=== PATIENT | female | born 1985 | race African-American/Black ===

== ENCOUNTER 2019-05-01 21:26 | Emergency (ER) | payer OTHER ==
[2019-05-01 21:32] VITALS: BP 116/79; PULSE 80; TEMP 98.4; BMI 29.9
--- NOTE | 2019-05-01 21:52 | PDOC ---
Documentation entered by Lillie Fernández SCRIBE, acting as scribe for Dinorah Mireles MD. Dinorah Mireles MD: This documentation has been prepared by the Jolene boo Brenda, SCRIBE, under my direction and personally reviewed by me in its entirety. I confirm that the documentation accurately reflects all work , treatment, procedures, and medical decision making performed by me. History of Present Illness - General Chief Complaint: Foreign Body (FB) Stated Complaint: FISHBONE STUCK IN THROAT Time Seen by Provider: 05/01/19 21:34 History Source: Patient Exam Limitations: No Limitations - History of Present Illness Initial Comments: 05/01/19 21:52 The patient is a 34 year old female, with a significant PMH of arrhythmia who presents to the emergency department with concern for digesting a foreign body. As per patient, she was eating fish for dinner about 1 hour ago, at which time she felt as if she swallowed a fish bone. Patient notes having a similar episode of this before, and feeling the same symptoms. Patient reports episodes of gagging and coughing uon swallowing, and coughing up slight blood. Patient notes being able to breathe and swallow. The patient denies chest pain, shortness of breath, headache and dizziness. Denies fever, chills, nausea, vomiting, diarrhea and constipation. Denies dysuria, frequency, urgency and hematuria. PAST MEDICAL HISTORY: Arrhythmia PAST SURGICAL HISTORY: umbilical hernia repair (2017) and FAMILY HISTORY: no pertinent history MEDICATIONS: reviewed ALLERGIES: As per nursing notes General: No fevers or chills, no weakness, no weight loss HEENT: (+)Possible foreign body in throat. (+)Cough. No change in vision. No sore throat,. No ear pain CardioVascular: No chest pain or shortness of breath Respiratory:No cough, or wheezing. Gastrointestinal: no nausea, vomiting, diarrhea or constipation, No rectal bleeding Genitourinary: No dysuria, hematuria, or frequency Musculoskeletal: No joint or muscle pain or swelling Neurologic: No headache, vertigo, dizziness or loss of consciousness Psychiatric: nor depression Skin: No rashes or easy bruising Endocrine: no increased thirst or abnormal weight change Allergic: no skin or latex allergy All other systems reviewed and normal GENERAL: The patient is awake, alert, and fully oriented, in no acute distress. HEAD: Normal with no signs of trauma. EYES: Pupils equal, round and reactive to light, extraocular movements intact, sclera anicteric, conjunctiva clear. EXTREMITIES: Normal range of motion, no edema. NEUROLOGICAL: Normal speech, normal gait. PSYCH: Normal mood, normal affect. SKIN: Warm, Dry, normal turgor, no rashes or lesions noted. Assessment and plan: This is a 34-year-old female comes in complaining of a foreign body/fishbone stuck in throat. The patient that we have nobody is a smoker so recommended that she either follow up with Dr. Gudino in the morning or over to the [facility] where somebody there will be able to scope her. 05/01/19 21:58 Past History - Past Medical History Allergies/Adverse Reactions: Allergies Allergy/AdvReac Type Severity Reaction Status Date / Time No Known Allergies Allergy Verified 05/01/19 21:28 Home Medications: Ambulatory Orders NK [No Known Home Medication] 05/01/19 COPD: No Other medical history: DENIES - Suicide/Smoking/Psychosocial Hx Smoking History: Never smoked Have you smoked in the past 12 months: No Information on smoking cessation initiated: No Hx Alcohol Use: No Drug/Substance Use Hx: No *Physical Exam - Vital Signs Last Vital Signs Temp Pulse Resp BP Pulse Ox 98.4 F 80 15 116/79 100 05/01/19 21:29 05/01/19 21:29 05/01/19 21:29 05/01/19 21:29 05/01/19 21:29 *DC/Admit/Observation/Transfer Diagnosis at time of Disposition: Foreign body sensation in throat - Discharge Dispostion Disposition: HOME Condition at time of disposition: Stable Decision to Admit order: No - Referrals Referrals: Juarez Lang MD [Staff Physician] - - Patient Instructions Additional Instructions: We have nobody here they can remove a foreign body/fishbone for you. You have to options one would be to follow-up with an ENT tomorrow. If you decide to follow-up with an ENT tomorrow call Dr. Bueno on for an appointment. Otherwise go over to the [facility] to the emergency department in [facility] and they will have somebody there they can scope you and get the bone out tonight. Return to the emergency department immediately with ANY new, persistent or worsening symptoms. Continue any medications as previously prescribed by your physician. You should follow up with your primary doctor as soon as possible regarding today's emergency department visit. . Please make sure your doctor reviews the results of your emergency evaluation. Thank you for coming to the Emergency Department today for your care. It was a pleasure to see you today. Please note that your evaluation is INCOMPLETE until you follow-up with your doctor. - Post Discharge Activity
== END 2019-05-01 22:01 | disposition home or self-care (01) ==
LOC: FER 21:26
DX: R09.89 Other specified symptoms and signs involving the circulatory and respiratory systems (principal); I49.9 Cardiac arrhythmia, unspecified
CPT/HCPCS: 99281-25

== ENCOUNTER 2022-01-30 20:20 | Emergency (ER) | payer OTHER ==
[2022-01-30 20:33] VITALS: BP 117/81; PULSE 85; TEMP 98.7; BMI 31.4
== END 2022-01-31 00:20 | disposition home or self-care (01) ==
LOC: JER 20:20
DX: R05.1 Acute cough (principal)
CPT/HCPCS: 71046-TC-FY; 99283-25

== ENCOUNTER 2023-07-16 19:11 | Emergency (ER) | payer OTHER ==
[2023-07-16 19:56] VITALS: TEMP 96.4; BMI 31.6
[2023-07-16 21:20] LABS: BASO % 0.3 % (0-2.0); EOS % 0.4 % (0-4.5); HEMATOCRIT 38.6 % (32.4-45.2); HEMOGLOBIN 12.6 GM/dL (10.7-15.3); LYMPH % 12.9 % (8-40); MCH 26.6 pg (25.7-33.7); MCHC 32.7 g/dl (32.0-36.0); MEAN CELL VOLUME 81.3 fl (80-96); MEAN PLT VOLUME 7.7 fl (7.5-11.1); MONO % 5.4 % (3.8-10.2); PLATELET COUNT 228 10^3/uL (134-434); RBC 4.75 M/mm3 (3.60-5.2); RDW 13.7 % (11.6-15.6); WHITE BLOOD COUNT 8.8 K/mm3 (4.0-10.0)
[2023-07-16 21:23] LABS: INR 1.03 (0.83-1.09)
[2023-07-16 21:36] LABS: CHLORIDE 108 mmol/L (98-107); POTASSIUM 3.8 mmol/L (3.5-5.1); SODIUM 139 mmol/L (136-145)
[2023-07-16 21:39] LABS: ALBUMIN 3.6 g/dl (3.4-5.0); ANION GAP 6 MMOL/L (8-16); BLOOD UREA NITROGEN 16.7 mg/dL (7-18); CO2 24 mmol/L (21-32); GLUCOSE,RANDOM 115 mg/dL (74-106); LIPASE 114 U/L (73-393)
[2023-07-16 21:41] LABS: CREATININE 0.9 mg/dL (0.55-1.3); SGOT/AST 14 U/L (15-37)
[2023-07-16 21:42] LABS: SGPT/ALT 17 U/L (13-61)
[2023-07-16 21:43] LABS: BILIRUBIN,TOTAL 0.3 mg/dL (0.2-1); TOT PROT 7.2 g/dl (6.4-8.2)
[2023-07-16 21:44] LABS: ALK PHOS 48 U/L (45-117)
[2023-07-16 22:14] VITALS: BP 118/80; PULSE 89; RESP 16
== END 2023-07-17 01:06 | disposition home or self-care (01) ==
LOC: JER 19:11
DX: R07.89 Other chest pain (principal); R42 Dizziness and giddiness; R07.0 Pain in throat; Z20.822 Contact with and (suspected) exposure to COVID-19
CPT/HCPCS: 0241U-QW; 36415; 71046-TC-FY; 80053; 83690; 84484; 84702; 85025; 85610; 93005; 93010; 99285-25

== ENCOUNTER 2023-10-29 21:22 | Emergency (ER) | payer OTHER ==
[2023-10-29 21:34] VITALS: BP 122/52; PULSE 77; RESP 18; TEMP 98.3; BMI 31.2
[2023-10-29 23:42] LABS: BASO % 0.4 % (0-2.0); EOS % 0.3 % (0-4.5); HEMATOCRIT 37.6 % (32.4-45.2); HEMOGLOBIN 12.4 GM/dL (10.7-15.3); MCH 26.8 pg (25.7-33.7); MEAN CELL VOLUME 81.1 fl (80-96); MEAN PLT VOLUME 7.9 fl (7.5-11.1); MONO % 5.6 % (3.8-10.2); NEUT % 78.7 % (42.8-82.8); PLATELET COUNT 224 10^3/uL (134-434); RBC 4.64 M/mm3 (3.60-5.2); RDW 14.3 % (11.6-15.6); WHITE BLOOD COUNT 8.6 K/mm3 (4.0-10.0)
[2023-10-30 01:42] LABS: POTASSIUM 4.3 mmol/L (3.5-5.1)
[2023-10-30 01:44] LABS: CALCIUM 8.9 mg/dL (8.5-10.1)
[2023-10-30 01:45] LABS: ALBUMIN 3.4 g/dl (3.4-5.0); BLOOD UREA NITROGEN 15.6 mg/dL (7-18)
[2023-10-30 01:48] LABS: CREATININE 0.9 mg/dL (0.55-1.3)
[2023-10-30 01:49] LABS: TOT PROT 7.1 g/dl (6.4-8.2)
[2023-10-30 01:50] LABS: BILIRUBIN,TOTAL 0.2 mg/dL (0.2-1)
== END 2023-10-30 02:05 | disposition home or self-care (01) ==
LOC: JER 21:22
DX: R07.89 Other chest pain (principal); R06.00 Dyspnea, unspecified; R42 Dizziness and giddiness; R25.1 Tremor, unspecified; Z20.822 Contact with and (suspected) exposure to COVID-19
CPT/HCPCS: 0241U-QW; 36415; 80053; 84484; 84703; 85025; 93005; 93010; 99284-25

== ENCOUNTER 2023-11-02 00:32 | Emergency (ER) | payer OTHER ==
[2023-11-02 00:51] VITALS: BMI 31.2
[2023-11-02] MEDS ORDERED: FAMOTIDINE 20 MG/50 ML IVPB 20 MG/50 ML MG IVPB ONE ×2 (01:53→02:21)
[2023-11-02] MEDS ORDERED: ONDANSETRON 4 MG/2 ML VIAL IVPUSH ONE (01:53)
[2023-11-02] MEDS ORDERED: ACETAMINOPHEN 1000 MG/100 ML BAG IVPB ONE ×2 (01:53→06:34)
[2023-11-02] MEDS ORDERED: ACETAMINOPHEN INJECTION 100 ML IVPB ONE (02:21)
[2023-11-02] MEDS ORDERED: ONDANSETRON 4 MG/2 ML VIAL ONE (02:21)
[2023-11-02 02:39] LABS: BASO % 0.5 % (0-2.0); EOS % 0.6 % (0-4.5); HEMATOCRIT 38.8 % (32.4-45.2); HEMOGLOBIN 12.4 GM/dL (10.7-15.3); MCH 26.3 pg (25.7-33.7); MEAN CELL VOLUME 82.2 fl (80-96); MEAN PLT VOLUME 7.9 fl (7.5-11.1); MONO % 9.3 % (3.8-10.2); NEUT % 80.6 % (42.8-82.8); PLATELET COUNT 198 10^3/uL (134-434); RBC 4.72 M/mm3 (3.60-5.2); RDW 13.8 % (11.6-15.6); WHITE BLOOD COUNT 5.3 K/mm3 (4.0-10.0)
[2023-11-02 02:45] LABS: INR 1.09 (0.83-1.09); PROTHROMBIN TIME (PATIENT) 12.6 SEC (9.7-13.0)
[2023-11-02 02:48] LABS: ACTIVATED PTT 29.2 SECONDS (25.2-36.5)
[2023-11-02 03:05] LABS: POTASSIUM 3.6 mmol/L (3.5-5.1)
[2023-11-02 03:09] LABS: CALCIUM 8.8 mg/dL (8.5-10.1)
[2023-11-02 03:10] LABS: ALBUMIN 3.9 g/dl (3.4-5.0); BLOOD UREA NITROGEN 11.5 mg/dL (7-18)
[2023-11-02 03:13] LABS: CREATININE 0.8 mg/dL (0.55-1.3)
[2023-11-02 03:14] LABS: BILIRUBIN,TOTAL 0.7 mg/dL (0.2-1)
[2023-11-02 03:15] LABS: TOT PROT 7.4 g/dl (6.4-8.2)
[2023-11-02 06:27] VITALS: BP 131/79; PULSE 128; RESP 20; TEMP 99
[2023-11-02] MEDS ORDERED: SODIUM CHLORIDE 1,000 ML IV STA (06:34)
== END 2023-11-02 07:36 | disposition home or self-care (01) ==
LOC: JER 00:32
PROC: 3E033NZ Introduction of Analgesics, Hypnotics, Sedatives into Peripheral Vein, Percutaneous Approach (ICD-10-PCS; principal; 2023-11-02)
PROC: 3E0337Z Introduction of Electrolytic and Water Balance Substance into Peripheral Vein, Percutaneous Approach (ICD-10-PCS; 2023-11-02)
DX: R07.89 Other chest pain (principal); R00.2 Palpitations; U07.1 COVID-19
CPT/HCPCS: 0241U-QW; 36415; 71275-TC; 80053; 84484; 84703; 85025; 85610; 85730; 93005; 93010; 99285-25; J0131

== ENCOUNTER 2023-11-06 19:55 | Emergency (ER) | payer OTHER ==
[2023-11-06 20:13] VITALS: RESP 18; BMI 29.9
[2023-11-06] MEDS ORDERED: ACETAMINOPHEN 1000 MG/100 ML BAG IVPB ONE (20:57)
[2023-11-06] MEDS ORDERED: FAMOTIDINE 20 MG/50 ML IVPB 20 MG/50 ML MG IVPB ONE ×2 (20:57→21:23)
[2023-11-06] MEDS ORDERED: LACTATED RINGERS SOLUTION 1000 ML INFUS.BAG IV ONE (21:00)
[2023-11-06] MEDS ORDERED: ACETAMINOPHEN INJECTION 100 ML IVPB ONE (21:23)
[2023-11-06 21:37] LABS: BASO % 0.3 % (0-2.0); EOS % 0.7 % (0-4.5); HEMATOCRIT 37.4 % (32.4-45.2); HEMOGLOBIN 12.2 GM/dL (10.7-15.3); LYMPH % 14.3 % (8-40); MCH 26.8 pg (25.7-33.7); MCHC 32.8 g/dl (32.0-36.0); MEAN CELL VOLUME 81.7 fl (80-96); MEAN PLT VOLUME 7.9 fl (7.5-11.1); NEUT % 79.7 % (42.8-82.8); PLATELET COUNT 210 10^3/uL (134-434); RBC 4.57 M/mm3 (3.60-5.2); RDW 13.5 % (11.6-15.6); WHITE BLOOD COUNT 7.7 K/mm3 (4.0-10.0)
[2023-11-06 21:40] VITALS: BP 117/69; PULSE 62; TEMP 98
[2023-11-06 21:47] LABS: POTASSIUM 3.6 mmol/L (3.5-5.1)
[2023-11-06 21:48] LABS: CALCIUM 8.7 mg/dL (8.5-10.1)
[2023-11-06 21:50] LABS: ALBUMIN 3.6 g/dl (3.4-5.0); BLOOD UREA NITROGEN 14.2 mg/dL (7-18); MAGNESIUM 2.3 mg/dL (1.8-2.4)
[2023-11-06 21:52] LABS: CREATININE 0.7 mg/dL (0.55-1.3)
[2023-11-06 21:54] LABS: BILIRUBIN,TOTAL 0.2 mg/dL (0.2-1)
[2023-11-06 22:29] LABS: EPI CELLS 33 /uL (0-25.1); HYALINE CASTS 0 /uL (0-3.1); PH,URINE 6.5 (5.0-8.0); URINE APPEARANCE CLEAR; URINE BACTERIA 974 /uL (0-1359); URINE BILIRUBIN NEGATIVE (NEGATIVE); URINE COLOR YELLOW; URINE GLUCOSE (UA) NEGATIVE (NEGATIVE); URINE KETONE NEGATIVE (NEGATIVE); URINE LEUK ESTERASE NEGATIVE (NEGATIVE); URINE NITRITE NEGATIVE (NEGATIVE); URINE PROTEIN NEGATIVE (NEGATIVE); URINE UROBILINOGEN 0.2 mg/dL (0.2-1.0); URINE WBC 23 /uL (0-25.8)
[2023-11-06 22:32] LABS: URINE RBC 34.6 /uL (0-23.9)
== END 2023-11-06 22:48 | disposition home or self-care (01) ==
LOC: JER 19:55
PROC: 3E033GC Introduction of Other Therapeutic Substance into Peripheral Vein, Percutaneous Approach (ICD-10-PCS; principal; 2023-11-06)
PROC: 3E033GC Introduction of Other Therapeutic Substance into Peripheral Vein, Percutaneous Approach (ICD-10-PCS; 2023-11-06)
DX: R07.89 Other chest pain (principal); R10.13 Epigastric pain; R00.2 Palpitations; U07.1 COVID-19
CPT/HCPCS: 0241U-QW; 36415; 71045-TC-FY; 80053; 81003; 83735; 84484; 84703; 85025; 87086; 93005; 93010; 99285-25; J0131

== ENCOUNTER 2024-01-24 15:06 | Emergency (ER) | payer OTHER ==
[2024-01-24 15:15] VITALS: TEMP 98.4; BMI 30.6
[2024-01-24 16:10] LABS: BASO % 0.5 % (0-2.0); EOS % 0.7 % (0-4.5); HEMATOCRIT 39.6 % (32.4-45.2); HEMOGLOBIN 12.5 GM/dL (10.7-15.3); LYMPH % 16.1 % (8-40); MCH 25.9 pg (25.7-33.7); MCHC 31.6 g/dl (32.0-36.0); MEAN CELL VOLUME 81.9 fl (80-96); MONO % 6.9 % (3.8-10.2); NEUT % 75.8 % (42.8-82.8); PLATELET COUNT 227 10^3/uL (134-434); RBC 4.84 M/mm3 (3.60-5.2); RDW 14.2 % (11.6-15.6); WHITE BLOOD COUNT 6.8 K/mm3 (4.0-10.0)
[2024-01-24 16:16] LABS: INR 1.02 (0.83-1.09); PROTHROMBIN TIME (PATIENT) 11.8 SEC (9.7-13.0)
[2024-01-24 16:19] LABS: ACTIVATED PTT 29.3 SECONDS (25.2-36.5)
[2024-01-24 16:34] LABS: POTASSIUM 3.9 mmol/L (3.5-5.1)
[2024-01-24 16:36] LABS: CALCIUM 9.2 mg/dL (8.5-10.1)
[2024-01-24 16:38] LABS: ALBUMIN 3.8 g/dl (3.4-5.0); BLOOD UREA NITROGEN 17.4 mg/dL (7-18); MAGNESIUM 2.3 mg/dL (1.8-2.4)
[2024-01-24 16:41] LABS: CREATININE 0.7 mg/dL (0.55-1.3)
[2024-01-24 16:43] LABS: BILIRUBIN,TOTAL 0.3 mg/dL (0.2-1); TOT PROT 7.7 g/dl (6.4-8.2)
[2024-01-24 17:35] VITALS: BP 121/80; PULSE 87; RESP 18
== END 2024-01-24 17:11 | disposition home or self-care (01) ==
LOC: JER 15:06
DX: R07.89 Other chest pain (principal); R06.02 Shortness of breath; Z20.822 Contact with and (suspected) exposure to COVID-19
CPT/HCPCS: 36415; 80053; 82550; 83735; 84484; 85025; 85610; 85730; 87635; 93005; 93010; 99284-25

== ENCOUNTER 2024-02-08 21:49 | Emergency (ER) | payer OTHER ==
[2024-02-08 21:55] VITALS: RESP 18; BMI 30.7
[2024-02-08] MEDS ORDERED: MAG HYDROX/AL HYDROX/SIMETH 30 ML UNIT-DOSE CUP ONE (23:16)
[2024-02-08] MEDS ORDERED: ACETAMINOPHEN 325 MG TABLET (FP) ONE (23:16)
[2024-02-08] MEDS: MAG HYDROX/AL HYDROX/SIMETH 30 ML UNIT-DOSE CUP PO ONE (23:41)
[2024-02-08] MEDS: ACETAMINOPHEN 500 MG TABLET (FP) PO ONE (23:41)
[2024-02-08 23:43] LABS: BASO % 0.3 % (0-2.0); EOS % 0.4 % (0-4.5); HEMATOCRIT 37.2 % (32.4-45.2); HEMOGLOBIN 12.4 GM/dL (10.7-15.3); LYMPH % 13.3 % (8-40); MCH 26.7 pg (25.7-33.7); MCHC 33.4 g/dl (32.0-36.0); MEAN CELL VOLUME 80.1 fl (80-96); MEAN PLT VOLUME 8.1 fl (7.5-11.1); MONO % 6.9 % (3.8-10.2); NEUT % 79.1 % (42.8-82.8); PLATELET COUNT 234 10^3/uL (134-434); RBC 4.65 M/mm3 (3.60-5.2); RDW 14.2 % (11.6-15.6); WHITE BLOOD COUNT 8.8 K/mm3 (4.0-10.0)
[2024-02-08 23:49] LABS: INR 1.04 (0.83-1.09); PROTHROMBIN TIME (PATIENT) 11.7 SEC (9.7-13.0)
[2024-02-08 23:52] LABS: ACTIVATED PTT 31.6 SECONDS (25.2-36.5)
[2024-02-09 00:48] LABS: POTASSIUM 3.8 mmol/L (3.5-5.1)
[2024-02-09 00:50] LABS: CALCIUM 8.9 mg/dL (8.5-10.1)
[2024-02-09 00:51] LABS: ALBUMIN 3.7 g/dl (3.4-5.0); BLOOD UREA NITROGEN 19.2 mg/dL (7-18); MAGNESIUM 2.2 mg/dL (1.8-2.4)
[2024-02-09 00:53] LABS: CREATININE 0.9 mg/dL (0.55-1.3)
[2024-02-09 00:55] LABS: TOT PROT 7.4 g/dl (6.4-8.2)
[2024-02-09 00:56] LABS: BILIRUBIN,TOTAL 0.2 mg/dL (0.2-1)
[2024-02-09 01:13] VITALS: BP 121/71; PULSE 72; TEMP 98.4
[2024-02-09 01:46] LABS: HIV INTERPRETATION NEGATIVE (NEGATIVE)
== END 2024-02-09 02:09 | disposition home or self-care (01) ==
LOC: JER 21:49
DX: R07.89 Other chest pain (principal); R10.13 Epigastric pain; R06.02 Shortness of breath
CPT/HCPCS: 36415; 71045-TC-FY; 80053; 83690; 83735; 84484; 84703; 85025; 85610; 85730; 86850; 86900; 86901; 87389; 93005; 93010; 99285-25

== ENCOUNTER 2024-07-06 04:37 | Emergency (ER) | payer OTHER ==
[2024-07-06 04:44] VITALS: RESP 20; BMI 32.4
[2024-07-06] MEDS ORDERED: MAG HYDROX/AL HYDROX/SIMETH 30 ML UNIT-DOSE CUP ONE (06:05)
[2024-07-06] MEDS ORDERED: FAMOTIDINE 20 MG/50 ML IVPB 20 MG/50 ML MG IVPB ONE (06:05)
[2024-07-06] MEDS: FAMOTIDINE 20 MG/50 ML IVPB 20 MG/50 ML MG IVPB ONE (06:13)
[2024-07-06] MEDS: MAG HYDROX/AL HYDROX/SIMETH 30 ML UNIT-DOSE CUP PO ONE (06:13)
[2024-07-06 07:23] VITALS: BP 119/92; PULSE 97; TEMP 98.1
== END 2024-07-06 07:23 | disposition home or self-care (01) ==
LOC: JER 04:37
PROC: 3E033GC Introduction of Other Therapeutic Substance into Peripheral Vein, Percutaneous Approach (ICD-10-PCS; principal; 2024-07-06)
DX: R07.89 Other chest pain (principal); Z20.822 Contact with and (suspected) exposure to COVID-19
CPT/HCPCS: 0241U-QW; 36415; 84484; 93005; 93010; 99284-25